=== PATIENT | female | born 1970 | race Caucasian/White ===

== ENCOUNTER 2016-11-02 13:45 | Emergency (ER) | payer OTHER ==
[~2016-11-02] VITALS: Ht 157.5 cm; Wt 86.2 kg
[~2016-11-02 13:45] MED LIST: AUGMENTIN 875875 MG PO; CIPRO 500MG (E500 MG PO; CIPRO500 MG PO; DOCUSATE SODIU100 MG PO; FLAG500 PO; FLAGYL250 MG PO; KETOROLAC TROME10 M1 PO; NEXIUM20 M1 PO; OMEPRAZOLE40 MG PO; PERCOCET 325 MG1 TA2 PO; PROTONIX 40MG T40 MG PO; SERTRALINE HYDR50 MG PO; SINGULAIR10 MG PO; TYLENOL TAB 32325 MG PO; ZOFRAN ODT4 MG PO; ZOFRAN4 M2 PO
[2016-11-02 14:42] LABS: ABSOLUTE BASOPHIL COUNT 0 /CUMM (0.0-0.2); ABSOLUTE EOSINOPHIL COUNT 0.1 /CUMM (0.0-0.7); ABSOLUTE MONOCYTE COUNT 0.4 /CUMM (0.10-0.60)
[2016-11-02 14:49] LABS: ABSOLUTE GRANULOCYTE CT 3.7 /CUMM (1.4-6.5); ABSOLUTE LYMPH COUNT 1.8 /CUMM (1.2-3.4); BASOPHIL % 0.7 % (0.0-2.0); EOSINOPHIL % 1.4 % (0-5); GRANULOCYTE % 61.4 % (42.2-75.2); HEMATOCRIT 34.6 % (37-47); MEAN CORPUSCULAR HGB 26.2 PG (27.0-31.0); MEAN CORPUSCULAR HGB CONC 33.7 G/DL (33.0-37.0); MEAN CORPUSCULAR VOLUME 77.7 FL (81.0-99.0); MEAN PLATELET VOLUME 7.6 FL (7.4-10.4); PLATELET COUNT 300 /CUMM (130-400); RBC DISTRIBUTION WIDTH 14.8 % (11.5-14.5); RED BLOOD CELL CT 4.45 /CUMM (4.20-5.40)
--- NOTE | 2016-11-02 15:11 | ED GI/GU/ABDOMINAL COMPLAINT ---
History of Present Illness General Chief Complaint: Abdominal Pain/Flank Pain Stated Complaint: ABD/BACK PAIN Source: patient, old records Exam Limitations: no limitations Vital Signs & Intake/Output Vital Signs & Intake/Output Vital Signs Date Time Temp Pulse Resp B/P Pulse O2 O2 Flow FiO2 Ox Delivery Rate 11/02 1348 98.0 69 20 135/87 98 Room Air Allergies Coded Allergies: erythromycin base (From ERYTHROCIN) (BAD ACNE 11/02/15) oxaprozin (HEART PALPITATIONS 11/02/15) Reconcile Medications Esomeprazole Magnesium (Nexium) 20 MG CAPSULE.DR 1 CAP PO DAILY GI (Reported) Montelukast Sodium (Singulair) 10 MG TAB 1 TAB PO DAILY ALLERGIES (Reported) SERTRALINE HCL (Sertraline Hydrochloride) 50 MG TABLET 75 MG PO DAILY DEPRESSION (Reported) Triage Note: PT C/O ABDOMINAL AND LOWER BACK PAIN. +NAUSEA. PT STATES IT FEELS LIKE HER DIVERTICULITIS IS BACK Triage Nurses Notes Reviewed? yes LMP (ages 10-50): unknown ? n Is pt currently ? No Onset: 2 days Duration: day(s):, constant, continues in ED, getting worse Timing: recent history Quality/Severity: aching, stabbing Location: left lower quadrant Radiation: back Activities at Onset: none Prior Abdominal Problems: similar symptoms Past Sexual History: Unobtainable at this time Modifying Factors: Worsens With: movement, palpation. Associated Symptoms: abdominal pain HPI: 2 days prior to admission patient complains of left lower quadrant pain sharp progressive radiating to her back worse with movement palpation. She denies fever chills nausea vomiting diarrhea chest pain cough shortness of breath headache dysuria rash bleeding. It is similar to previous diverticulitis pain. (SÁNCHEZ THAO,LIZETH) Past History Travel History Traveled to [place] past 21 day No Medical History Any Pertinent Medical History? 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 No (LIZETH POZO MD) Review of Systems Review of Systems Constitutional: Reports: no symptoms. EENTM: Reports: no symptoms. Respiratory: Reports: no symptoms. Cardiovascular: Reports: no symptoms. GI: Reports: see HPI, abdominal pain. Genitourinary: Reports: no symptoms. Musculoskeletal: Reports: no symptoms. Skin: Reports: no symptoms. Neurological/Psychological: Reports: no symptoms. Hematologic/Endocrine: Reports: no symptoms. Immunologic/Allergic: Reports: no symptoms. All Other Systems: Reviewed and Negative (LIZETH POZO MD) Physical Exam Physical Exam General Appearance: well developed/nourished, alert, awake, anxious, mild distress, obese Head: atraumatic, normal appearance Eyes: Bilateral: normal appearance, PERRL, EOMI, normal inspection. Ears, Nose, Throat, Mouth: hearing grossly normal, moist mucous membrane Neck: normal inspection, supple, full range of motion, normal alignment Respiratory: normal breath sounds, chest non-tender, no respiratory distress, quiet respiration, lungs clear Cardiovascular: regular rate/rhythm, normal peripheral pulses, norml femoral pulses equa Peripheral Pulses: 4+ carotid (R), 4+ carotid (L) Gastrointestinal: normal bowel sounds, soft, guarding, rebound, tenderness (LLQ) Back: normal inspection, normal range of motion Extremities: normal range of motion, no ligament instability Neurologic/Psych: no motor/sensory deficits, awake, alert, oriented x 3, normal gait, normal mood/affect, brass pickler II-XII nml as tested Skin: intact, normal color, warm/dry Core Measures ACS in differential dx? No Severe Sepsis Present: No Septic Shock Present: No (LIZETH POZO MD) Progress Differential Diagnosis: diverticulitis, kidney stone, UTI/pyelo Plan of Care: Orders Procedure Date/time Status URINE 11/02 1423 Complete URINALYSIS 11/02 1423 Complete LIPASE 11/02 1423 Complete COMPREHENSIVE METABOLIC PANEL 11/02 1423 Complete CBC WITHOUT DIFFERENTIAL 11/02 1423 Complete Current Medications Sig/Adriana Start time Last Medication Dose Stop Time Status Admin Ciprofloxacin 500 MG ONCE ONE 11/02 1630 AC (Cipro) 11/02 1631 Metronidazole 500 MG ONCE ONE 11/02 1630 AC (Flagyl) 11/02 1631 Laboratory Tests 11/02/16 1433: Urine Color YEL, Urine Clarity CLEAR, Urine pH 6.0, Ur Specific [place] >= 1.030 , Urine Protein NEG, Urine Ketones NEG, Urine Nitrite NEG, Urine Bilirubin NEG, Urine Urobilinogen 0.2, Ur Leukocyte Esterase SMALL H, Ur Microscopic SEDIMENT EXAMINED, Urine RBC RARE, Urine WBC RARE, Ur Epithelial Cells MOD H, Urine Bacteria MOD H, Hyaline Casts RARE H, Urine Mucus FEW, Urine Hemoglobin TRACE- INTACT, Urine Glucose NEG, Urine Test NEGATIVE 11/02/16 1430: Anion Gap 11, Estimated GFR > 60, BUN/Creatinine Ratio 23.3, Glucose 84, Calcium 9.4, Total Bilirubin 0.4, AST 17, ALT 30, Alkaline Phosphatase 87, Total Protein 7.5, Albumin 4.3, Globulin 3.2, Albumin/Globulin Ratio 1.3, Lipase 87, CBC w Diff NO MAN DIFF REQ, RBC 4.45, MCV 77.7 L, MCH 26.2 L, RDW 14.8 H, MPV 7.6, Gran % 61.4, Lymphocytes % 30.3, Monocytes % 6.2, Eosinophils % 1.4, Basophils % 0.7, Absolute Granulocytes 3.7, Absolute Lymphocytes 1.8, Absolute Monocytes 0.4 , Absolute Eosinophils 0.1, Absolute Basophils 0, PUBS MCHC 33.7 Initial ED EKG: none Hand-Off Endorsed To: FRANCISCO MARY MD Endorsed Time: 1500 Pending: labs, other (SÁNCHEZ THAO,LIZETH) Comments: 11/02/2016 3:59:13 PM patient 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 11/02/2016 4:23:11 PM Alice is starting to feel better with only minimal pain at this point. Her abdominal examination shows mild left lower quadrant abdominal tenderness with brief voluntary guarding but no rebound. She states that this is a typical episode of diverticulitis for her (based on symptoms) and feels comfortable with omitting the CAT scan at this point. (FRANCISCO MARY MD) Departure Departure Disposition: STILL A PATIENT Condition: Stable Referrals: ROBER HINOJOSA APRN (PCP/Family) Departure Forms: Customer Survey General Discharge Information (LIZETH POZO MD) Departure Clinical Impression Primary Impression: Abdominal pain Qualifiers: Abdominal location: left lower quadrant Qualified Code: R10.32 - Left lower quadrant pain Secondary Impressions: Diverticulitis Qualifiers: Diverticulitis bleeding: without bleeding Additional Instructions: Cipro and Flagyl as prescribed. Toradol as needed for pain. Follow-up with your primary care physician in 48 hours for reevaluation. Return if any concerns or sudden worsening. Thank you for choosing the [facility] Emergency Department for your care. It was a pleasure to serve you today. Francisco Mary M.D. [facility] Prescriptions: Current Visit Scripts Ciprofloxacin HCl (Cipro) 1 TAB PO BID #14 TAB Metronidazole (Flagyl) 1 TAB PO Q6 #28 TAB Ketorolac Tromethamine 1 TAB PO Q6P PRN pain #16 TAB (CARMEL THAO,FRANCISCO Duarte)
[2016-11-02] MEDS ORDERED: KETOROLAC TROME10 M1 PO (16:27)
[2016-11-02] MEDS ORDERED: FLAGYL500 MG PO (16:27)
[2016-11-02] MEDS ORDERED: CIPRO500 M1 PO (16:27)
[2016-11-02 16:36] VITALS: BP 139/86
== END 2016-11-02 17:29 ==
LOC: ERH 13:45
PROVIDERS: Emergency Medicine
DX: K57.92 Diverticulitis of intestine, part unspecified, without perforation or abscess without bleeding (principal)
CPT/HCPCS: 81001; 81025; 96361; 96374; J1885

== ENCOUNTER 2017-11-19 12:54 | Emergency (ER) | payer OTHER ==
[~2017-11-19] VITALS: Ht 157.5 cm; Wt 86.2 kg
[~2017-11-19 12:54] MED LIST changes: +BACTRIM DS TAB1 EACH PO; +CIPRO500 M1 PO; +FLAGYL500 MG PO; +PRILOSEC OTC20 M1 PO; +SERTRALINE HCL50 MG PO; -SERTRALINE HYDR50 MG PO; +SINGULAIR10 M1 PO; -SINGULAIR10 MG PO
--- NOTE | 2017-11-19 13:10 | ED CARDIAC/CP/PALPITATIONS ---
History of Present Illness General Chief Complaint: Chest Pain Stated Complaint: BIBA CHEST PAIN Source: patient, family Exam Limitations: no limitations Vital Signs & Intake/Output Vital Signs & Intake/Output Vital Signs Date Time Temp Pulse Resp B/P B/P Pulse O2 O2 Flow FiO2 Mean Ox Delivery Rate 11/19 1651 58 14 119/79 97 Room Air 11/19 1536 98.4 69 18 120/68 96 Room Air 11/19 1330 75 142/72 11/19 1256 98.2 68 18 140/89 96 Room Air Room Air Allergies Coded Allergies: erythromycin base (From ERYTHROCIN) (BAD ACNE 11/02/15) oxaprozin (HEART PALPITATIONS 11/02/15) Reconcile Medications Montelukast Sodium (Singulair) 10 MG TABLET 1 TAB PO DAILY ALLERGIES ( Reported) Omeprazole Magnesium (Prilosec Otc) 20 MG TABLET.DR 1 TAB PO DAILY GI ( Reported) Sertraline HCl 50 MG TABLET 75 MG PO DAILY MENTAL HEALTH (Reported) Triage Note: TRIAGE: 47 Y/O FEMALE PRESENTS C/O 5/10 SUBSTERNAL/ LEFT SIDED CHEST PAIN X1 HOUR WHILE AT [facility]. RECEIVED EITHER 3 OR 4 ASA PRIOR TO ARRIVAL. RECEIVED 0.4MG SUBMIGUAL NITRO EV ROUTE. 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 Triage Nurses Notes Reviewed? yes Onset: Abrupt Duration: hour(s): Timing: single episode today Quality/Severity: moderate Location: substernal Radiation: no radiation Activities at Onset: none Prior Chest Pain/Card Workup: no prior chest pain Nitro Today/Relief: 0.4 mg x 1 Aspirin Today: 81 mg x 3 LMP (ages 10-50): TUBAL LIGATION : No HPI: 47yo female with hx of diverticulitis, depresssion BIBA complaining of left- sided substernal chest pain beginning at 1145 today. Patient states that she was sitting in yarsani when chest pain began. Pain is described as constant, 5/ 10, without radiation, pleuritic. Patient has no history of prior chest pain. Patient does report a history of bradycardia and tachycardia during childbirth however did not require cardiology follow-up at that time. Patient also reports associated nausea which is improved following IV Zofran. Patient reports associated dyspnea. Patient was given 81 mg aspirin 3 and sublingual nitroglycerin 0.41. Patient reports no relief or change in her chest pain following nitroglycerin dose. Patient reports dry cough intermittently. Patient denies abdominal pain, fevers, chills, hemoptysis, recent travel, leg swelling, exogenous estrogen use, history of PE. (Ирина Hinojosa) Past History Travel History Traveled to [place] past 21 day No Medical History Any Pertinent Medical History? 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 No (Ирина Hinojosa) Review of Systems Review of Systems Constitutional: Reports: no symptoms. EENTM: Reports: no symptoms. Respiratory: Reports: see HPI. Cardiovascular: Reports: see HPI. GI: Reports: see HPI. Genitourinary: Reports: no symptoms. Musculoskeletal: Reports: no symptoms. Skin: Reports: no symptoms. Neurological/Psychological: Reports: no symptoms. Hematologic/Endocrine: Reports: no symptoms. Immunologic/Allergic: Reports: no symptoms. All Other Systems: Reviewed and Negative (Ирина Hinojosa) Physical Exam Physical Exam General Appearance: well developed/nourished, no apparent distress, alert, awake Head: atraumatic, normal appearance Eyes: Bilateral: normal appearance. Ears, Nose, Throat: hearing grossly normal Neck: normal inspection, supple, full range of motion Respiratory: no respiratory distress, slightly diminished breath sounds bilaterally Cardiovascular: regular rate/rhythm, normal peripheral pulses Peripheral Pulses: 2+ radial (R), 2+ radial (L) Gastrointestinal: normal bowel sounds, soft, non-tender, no organomegaly Back: normal inspection, normal range of motion Extremities: normal inspection, normal range of motion, no edema Neurologic/Psych: awake, alert, oriented x 3 Skin: intact, normal color, warm/dry Core Measures ACS in differential dx? Yes CVA/TIA Diagnosis No Sepsis Present: No Sepsis Focused Exam Completed? No (Ирина Hinojosa) Progress Differential Diagnosis: AMI, atrial fibrillation, CHF/pulm edema, costochondritis, hyperventilation, musculoskeletal pain, myocarditis, pericarditis, pneumonia, pneumothorax, PSVT, pulmonary embolism, unstable angina Plan of Care: Orders Procedure Date/time Status TROPONIN LEVEL 11/19 1630 Complete EKG 11/19 1630 Active Add-on Test (ER Only) 11/19 1441 Active D-DIMER 11/19 1325 Complete URINE 11/19 1309 Complete URINE DRUG SCREEN FOR ER ONLY 11/19 1309 Complete URINALYSIS 11/19 1309 Complete TROPONIN LEVEL 11/19 1309 Complete COMPREHENSIVE METABOLIC PANEL 11/19 1309 Complete CBC WITHOUT DIFFERENTIAL 11/19 1309 Complete EKG 11/19 1300 Active Laboratory Tests 11/19/17 1642: Troponin I < 0.01, Urine Opiates Screen 2303.00 H, Methadone Screen < 40, Barbiturate Screen < 60, Ur Phencyclidine Scrn < 6.00, Amphetamines Screen < 100 , U Benzodiazepines Scrn 114, Urine Cocaine Screen < 50, Urine Cannabis Screen < 5.00, Urine Color YEL, Urine Clarity CLEAR, Urine pH 6.0, Ur Specific [place] 1.025, Urine Protein NEG, Urine Ketones NEG, Urine Nitrite NEG, Urine Bilirubin NEG, Urine Urobilinogen 0.2, Ur Leukocyte Esterase NEG, Ur Microscopic SEDIMENT EXAMINED, Urine RBC 1-3, Urine WBC RARE, Ur Epithelial Cells FEW, Urine Bacteria RARE H, Urine Mucus RARE, Urine Hemoglobin TRACE-LYSED, Urine Glucose NEG, Urine Test NEGATIVE 11/19/17 1330: Anion Gap 11, Estimated GFR > 60, BUN/Creatinine Ratio 18.3, Glucose 99, Calcium 9.5, Total Bilirubin 0.4, AST 20, ALT 22, Alkaline Phosphatase 87, Troponin I < 0.01, Total Protein 7.1, Albumin 4.1, Globulin 3.0, Albumin/Globulin Ratio 1.4, D-Dimer High Sensitivty 212, CBC w Diff NO MAN DIFF REQ, RBC 4.34, MCV 78.3 L, MCH 25.9 L, MCHC 33.1, RDW 14.4, MPV 7.5, Gran % 65.6, Lymphocytes % 25.6, Monocytes % 7.4, Eosinophils % 0.9, Basophils % 0.5, Absolute Granulocytes 4.2, Absolute Lymphocytes 1.6, Absolute Monocytes 0.5, Absolute Eosinophils 0.1, Absolute Basophils 0 Patient reports no relief following second sublingual nitroglycerin tablet. Patient medicated with IV morphine. Patient states her chest pain has improved following morphine. Chest x-ray is within normal limits. Initial EKG in sinus rhythm. Troponin enzyme is negative. D-dimer is negative, low suspicion for pulmonary embolism at this time. Dr. Acevedo present in the emergency department, he saw patient's initial EKG. He states that her current symptoms are likely not cardiac in nature however recommends repeat EKG and troponin. Repeat EKG is unchanged from previous study. Second troponin enzyme negative. I discussed these findings with Dr. Acevedo, he agrees with plan for outpatient follow-up in the office. Patient was given strict return precautions. The patient is in no acute distress, nontoxic appearing, vital signs are stable. She states that her prior chest pain has resolved. Patient understands and agrees with the plan of care. Diagnostic Imaging: Viewed by Me: Radiology Read. Discussed w/RAD: Radiology Read. CXR Impression: PATIENT: BRADEN RODRÍGUEZ PRESENT AGE: 47 PATIENT ACCOUNT NO: [id number] : 71 LOCATION: [facility] ORDERING PHYSICIAN: Ирина LIM SERVICE DATE: 11/19/17 EXAM TYPE: RAD - XRY-CHEST XRAY, TWO VIEWS EXAMINATION: XR CHEST CLINICAL INFORMATION: Chest pain. COMPARISON: 01/13/2011 TECHNIQUE: 2 views of the chest were obtained. FINDINGS: Large body habitus. Lungs are hypoinflated but clear. No focal interstitial infiltrate, consolidation or pleural effusion. Cardiac silhouette is normal in size. The mediastinal and hilar contours are normal. The visualized bones are intact. IMPRESSION: No acute cardiopulmonary findings. DICTATED BY: Jenaro Amado MD DATE/TIME DICTATED:11/19/171440 PHARMACY TEACHER:AILIN DATE/TIME TRANSCRIBED:11/19/171440 CONFIDENTIAL, DO NOT COPY WITHOUT APPROPRIATE AUTHORIZATION. <Electronically signed in Other Vendor System> SIGNED BY: Jenaro Amado MD 11/19/17 6818 Initial ED EKG: sinus rhythm @62bpm, LVH Prior EKG: unchanged (10/08/05) Repeat EKG: unchanged (MacyИрина Rivera) Departure Departure Disposition: HOME OR SELF CARE Condition: Stable Clinical Impression Primary Impression: Chest pain Referrals: Melissa Ryan APRN (PCP/Family) Emerita Acevedo MD Additional Instructions: Take Aleve 400mg twice daily for inflammation. Follow-up with the truck supervisor, Dr. Acevedo, call the office tomorrow morning to set up appointment for this week. With any worsening symptoms such as increasing chest pain, shortness of breath, feeling is that you're going to pass out, fainting please return immediately to the emergency department. Please note that there might be incidental findings in your evaluation that are unrelated to the current emergency department visit. Please notify your primary care doctor about this emergency department visit in order to obtain and review all of the testing performed so that these incidental findings can be monitored as needed. If you had an x-ray performed, please understand that some fractures may not be seen on the initial set of x-rays. If your symptoms persist you might need a repeat set of x-rays to check for such a fracture. If you had a laceration evaluated, please understand that foreign bodies such as glass or wood may not be visible to the naked eye or on plain x-rays. If the wound becomes red, swollen, increasingly more painful or if there is any drainage from the wound, please have it reevaluated by a physician for the possibility of a retained foreign body. If you're unable to follow up as outlined in the discharge instructions please return to the emergency department. Thank you for choosing the [facility] Emergency Department for your care. It was a pleasure to serve you today. Departure Forms: Customer Survey General Discharge Information (Ирина Hinojosa) PA/INDOOR LANDSCAPER/GARDENER Co-Sign Statement Statement: ED Attending supervision documentation- X I saw and evaluated the patient. I have also reviewed all the pertinent lab results and diagnostic results. I agree with the findings and the plan of care as documented in the PA's/INDOOR LANDSCAPER/GARDENER's documentation. [] I have reviewed the ED Record and agree with the PA's/INDOOR LANDSCAPER/GARDENER's documentation. [] Additions or exceptions (if any) to the PAs/INDOOR LANDSCAPER/GARDENER's note and plan are summarized below: [] (Jacinto THAO,Romel) Critical Care Note Critical Care Note Critical Care Time: non-applicable (Ирина Hinojosa)
[2017-11-19 14:22] LABS: ABSOLUTE BASOPHIL COUNT 0 /CUMM (0.0-0.2); ABSOLUTE EOSINOPHIL COUNT 0.1 /CUMM (0.0-0.7); ABSOLUTE GRANULOCYTE CT 4.2 /CUMM (1.4-6.5); ABSOLUTE LYMPH COUNT 1.6 /CUMM (1.2-3.4); ABSOLUTE MONOCYTE COUNT 0.5 /CUMM (0.10-0.60); BASOPHIL % 0.5 % (0.0-2.0); EOSINOPHIL % 0.9 % (0-5); GRANULOCYTE % 65.6 % (42.2-75.2); MEAN CORPUSCULAR HGB 25.9 PG (27.0-31.0); MEAN CORPUSCULAR HGB CONC 33.1 G/DL (33.0-37.0); MEAN CORPUSCULAR VOLUME 78.3 FL (81.0-99.0); MEAN PLATELET VOLUME 7.5 FL (7.4-10.4); PLATELET COUNT 294 /CUMM (130-400); RBC DISTRIBUTION WIDTH 14.4 % (11.5-14.5); RED BLOOD CELL CT 4.34 /CUMM (4.20-5.40); WHITE BLOOD CELL COUNT 6.3 /CUMM (4.8-10.8)
--- NOTE | 2017-11-19 14:47 | RADIOLOGY REPORT ---
EXAMINATION: XR CHEST CLINICAL INFORMATION: Chest pain. COMPARISON: 01/13/2011 TECHNIQUE: 2 views of the chest were obtained. FINDINGS: Large body habitus. Lungs are hypoinflated but clear. No focal interstitial infiltrate, consolidation or pleural effusion. Cardiac silhouette is normal in size. The mediastinal and hilar contours are normal. The visualized bones are intact. IMPRESSION: No acute cardiopulmonary findings.
[2017-11-19 16:51] VITALS: BP 119/79
== END 2017-11-19 18:41 ==
LOC: ERH 12:54
PROVIDERS: Physician Assistant
DX: R07.89 Other chest pain (principal)
CPT/HCPCS: 71046; 80307; 81001; 81025; 93005; 93010; 96374

== ENCOUNTER 2017-11-22 19:13 | Emergency (ER) | payer OTHER ==
[2017-11-22 19:39] LABS: ABSOLUTE BASOPHIL COUNT 0 /CUMM (0.0-0.2); ABSOLUTE EOSINOPHIL COUNT 0.1 /CUMM (0.0-0.7); ABSOLUTE LYMPH COUNT 1.9 /CUMM (1.2-3.4); ABSOLUTE MONOCYTE COUNT 0.6 /CUMM (0.10-0.60); BASOPHIL % 0.5 % (0.0-2.0); EOSINOPHIL % 1.1 % (0-5); GRANULOCYTE % 65.2 % (42.2-75.2); HEMATOCRIT 34.7 % (37-47); MEAN CORPUSCULAR HGB 25.4 PG (27.0-31.0); MEAN CORPUSCULAR HGB CONC 32.8 G/DL (33.0-37.0); MEAN CORPUSCULAR VOLUME 77.6 FL (81.0-99.0); PLATELET COUNT 318 /CUMM (130-400); RBC DISTRIBUTION WIDTH 14.6 % (11.5-14.5); RED BLOOD CELL CT 4.48 /CUMM (4.20-5.40); WHITE BLOOD CELL COUNT 7.7 /CUMM (4.8-10.8)
--- NOTE | 2017-11-22 20:08 | RADIOLOGY REPORT ---
EXAMINATION: XR CHEST CLINICAL INFORMATION: Chest pain, shortness of breath COMPARISON: 11/19/2017 TECHNIQUE: 2 views of the chest were obtained. FINDINGS: Lung volumes are slightly diminished. No focal consolidation or mass. No pleural effusion or pneumothorax. Cardiomediastinal silhouette within normal limits. S-shaped thoracolumbar scoliosis. IMPRESSION: No acute pulmonary disease.
--- NOTE | 2017-11-22 20:59 | ED CARDIAC/CP/PALPITATIONS ---
History of Present Illness General Chief Complaint: Chest Pain Stated Complaint: CHEST PAIN Source: patient, old records Exam Limitations: no limitations Vital Signs & Intake/Output Vital Signs & Intake/Output Vital Signs Date Time Temp Pulse Resp B/P B/P Pulse O2 O2 Flow FiO2 Mean Ox Delivery Rate 11/22 2334 98.1 66 18 149/71 98 Room Air 11/22 2230 97.6 71 16 128/76 98 Room Air 11/22 2010 68 16 123/65 98 Room Air 11/22 2009 Room Air 11/22 1922 96.3 76 18 141/90 98 Room Air Allergies Coded Allergies: erythromycin base (From ERYTHROCIN) (BAD ACNE 11/02/15) oxaprozin (HEART PALPITATIONS 11/02/15) Reconcile Medications Montelukast Sodium (Singulair) 10 MG TABLET 1 TAB PO DAILY ALLERGIES ( Reported) Omeprazole Magnesium (Prilosec Otc) 20 MG TABLET.DR 1 TAB PO DAILY GI ( Reported) Sertraline HCl 50 MG TABLET 75 MG PO DAILY MENTAL HEALTH (Reported) Triage Note: PT TO TRIAGE C/O MID SUBSTERNAL CP CONSISTANT IN NATURE X1 DAY THAT BEGAN AT REST. PER PT WAS SEEN HERE OVER THE WEEKEND STATES "THEY DIDN'T FIND ANYTHING BUT SAID TO COME BACK IF I HAD PAIN AGAIN." PT DENIES SOB/DIZZINESS/N/V/RADIATING PAIN. Triage Nurses Notes Reviewed? yes Onset: Gradual Duration: week(s): (1), constant, continues in ED, getting worse Timing: recent history Quality/Severity: moderate, "pOINTING". Location: central Radiation: no radiation Activities at Onset: none, rest Prior Chest Pain/Card Workup: no prior chest pain, no prior cardiac workup Modifying Factors: Worsens With: palpation. Nitro Today/Relief: no nitro taken today Aspirin Today: no aspirin today LMP (ages 10-50): unknown : No Patient currently breastfeeds: No HPI: 47 Y/O female past medical history of depression, mood swings, diverticulitis present for evaluation of chest pain. Patient states that symptoms have been present for the past week and have been persistent. States that initially the pain started off as pressure. She was seen in the emergency department several days ago had a cardiac workup including 2 sets of EKGs and troponins negative d- dimer negative chest x-ray. She was referred to cardiology and discharged. Patient states that since then the pain has worsened and unchanged. The pain has now become "a pointing sensation". This is located in the center of her chest. It is worse with palpation of the area as well as movement of the upper extremities and thorax. There is no trauma no shortness of breath. No nausea vomiting sweats or chills. She does report a cardiac history and her uncle and grandfather. She does not drink smoke or use any drugs. There is no chest pain or shortness of breath worsening on exertion. She's not taking any medicine for this. (Kaiden Stallworth) Past History Travel History Traveled to [place] past 21 day No Medical History Any Pertinent Medical History? see below for history Neurological: NONE EENT: NONE Cardiovascular: NONE Respiratory: SEASONAL ALLERGIES chronic cough Gastrointestinal: diverticulitis Hepatic: NONE Renal: NONE Musculoskeletal: NONE Psychiatric: depression, mood swings Endocrine: NONE Blood Disorders: NONE Cancer(s): NONE SLAT PICKLER/Reproductive: NONE History of MRSA: No History of VRE: No History of CDIFF: No Surgical History Surgical History: non-contributory Psychosocial History Who do you live with Family Services at Home None What is your primary language Hungarian Tobacco Use: Never used Family History Hx Contributory? No (Kaiden Stallworth) Review of Systems Review of Systems Constitutional: Reports: no symptoms. EENTM: Reports: no symptoms. Respiratory: Reports: no symptoms. Cardiovascular: Reports: see HPI, chest pain. GI: Reports: no symptoms. Genitourinary: Reports: no symptoms. Musculoskeletal: Reports: no symptoms. Skin: Reports: no symptoms. Neurological/Psychological: Reports: no symptoms. Hematologic/Endocrine: Reports: no symptoms. Immunologic/Allergic: Reports: no symptoms. All Other Systems: Reviewed and Negative (Kaiden Stallworth) Physical Exam Physical Exam General Appearance: well developed/nourished, no apparent distress, alert, awake Head: atraumatic, normal appearance Eyes: Bilateral: normal appearance, PERRL, EOMI. Ears, Nose, Throat: normal pharynx, normal ENT inspection, hearing grossly normal Neck: normal inspection, supple, full range of motion Respiratory: normal breath sounds, no respiratory distress, lungs clear, CHEST WALL IS TENDER TO PALPATION OF THE STERNUM. nO BRUISING SWELLING OR ABRASIONS CHEST PAIN HISTORY. sO WITH RANGE OF MOTION OF THE THORAX AND BILATERAL UPPER EXTREMITIES Cardiovascular: regular rate/rhythm, normal peripheral pulses Peripheral Pulses: 2+ radial (R), 2+ radial (L) Gastrointestinal: soft, non-tender Back: normal inspection, normal range of motion, no vertebral tenderness Extremities: normal inspection, normal range of motion, no edema Neurologic/Psych: no motor/sensory deficits, awake, alert, oriented x 3, normal gait, normal mood/affect Skin: intact, normal color, warm/dry Lymphatic: no anterior cervical [place] Core Measures ACS in differential dx? No CVA/TIA Diagnosis No Sepsis Present: No Sepsis Focused Exam Completed? No (Kirk LIM,Kaiden) Progress Differential Diagnosis: AMI, aortic dissection, atrial fibrillation, CHF/pulm edema, costochondritis, musculoskeletal pain, pancreatitis, pericarditis, pneumonia, pneumothorax, PSVT, pulmonary embolism, PUD/GERD, PVCs/PACs, unstable angina Plan of Care: Orders Procedure Date/time Status TROPONIN LEVEL 11/22 2229 Complete EKG 11/22 2229 Active Add-on Test (ER Only) 11/23 1939 Active HUMAN BETA HCG SCREEN 11/23 1927 Complete EKG 11/23 1915 Active TROPONIN LEVEL 11/22 1913 Complete COMPREHENSIVE METABOLIC PANEL 11/22 1913 Complete CBC WITHOUT DIFFERENTIAL 11/22 1913 Complete Current Medications Sig/Adriana Start time Last Medication Dose Stop Time Status Admin Acetaminophen 650 MG ONCE ONE 11/220 CAN (Tylenol) 11/22 2331 Laboratory Tests 11/22/17 2223: Troponin I < 0.01 11/22/171927: Anion Gap 12, Estimated GFR > 60, BUN/Creatinine Ratio 20.0, Glucose 91, Calcium 9.1, Total Bilirubin 0.4, AST 17, ALT 25, Alkaline Phosphatase 83, Troponin I < 0.01, Total Protein 7.4, Albumin 4.2, Globulin 3.2, Albumin/Globulin Ratio 1.3, Total Beta HCG NEGATIVE, CBC w Diff NO MAN DIFF REQ, RBC 4.48, MCV 77.6 L, MCH 25.4 L, MCHC 32.8 L, RDW 14.6 H, MPV 7.0 L, Gran % 65.2, Lymphocytes % 25.3, Monocytes % 7.9, Eosinophils % 1.1, Basophils % 0.5, Absolute Granulocytes 5.0, Absolute Lymphocytes 1.9, Absolute Monocytes 0.6, Absolute Eosinophils 0.1, Absolute Basophils 0 Patient seen and evaluated. She's been having chest pain for greater than a week constantly. She does report that today the pain changed from pressure to "pointing sensation". No shortness of breath. She was seen here several days ago and had a negative workup. She was referred to cardiology but has not yet followed up. The pain is reproducible with range of motion and palpation. Her vital signs are stable. PERC negative. We'll recheck basic labs chest x-ray and EKG troponin. All blood work is within normal limits initial EKG troponin negative unchanged. Chest x-ray clear. Patient is medicated with ibuprofen and reports resolution of the pointing sensation and now just has persistent pressure again. We'll recheck another EKG and troponin. Repeat EKG troponin is not show any significant changes. Patient reports improvement after ibuprofen. Vital signs are stable. Reviewed all results of today's visit with patient advised her to follow-up with cardiology for further evaluation and treatment discussed return precautions case discussed with and he agrees. Dr. POZO personally saw and evaluated the patient. Diagnostic Imaging: Viewed by Me: Radiology Read. Discussed w/RAD: Radiology Read. Radiology Impression: PATIENT: BRADEN RODRÍGUEZ PRESENT AGE: 47 PATIENT ACCOUNT NO: [id number] : 71 LOCATION: [facility] ORDERING PHYSICIAN: Kaiden LIM SERVICE DATE: 11/22/17 EXAM TYPE: RAD - XRY- CHEST XRAY, TWO VIEWS EXAMINATION: XR CHEST CLINICAL INFORMATION: Chest pain, shortness of breath COMPARISON: 11/19/2017 TECHNIQUE: 2 views of the chest were obtained. FINDINGS: Lung volumes are slightly diminished. No focal consolidation or mass. No pleural effusion or pneumothorax. Cardiomediastinal silhouette within normal limits. S-shaped thoracolumbar scoliosis. IMPRESSION: No acute pulmonary disease. DICTATED BY: Marcelo Tyson MD DATE/TIME DICTATED:11/22/172003 NURSE ADVOCATE:AILIN DATE/TIME TRANSCRIBED:11/22/172003 CONFIDENTIAL, DO NOT COPY WITHOUT APPROPRIATE AUTHORIZATION. <Electronically signed in Other Vendor System> SIGNED BY: Marcelo Tyson MD 11/22/172007 Initial ED EKG: normal sinus rhythm, LVH, no ST T wave changes Prior EKG: unchanged Repeat EKG: unchanged (Kaiden Stallworth) Departure Departure Disposition: HOME OR SELF CARE Condition: Stable Clinical Impression Primary Impression: Chest wall pain Referrals: Melissa Ryan APRN (PCP/Family) Emerita Acevedo MD Additional Instructions: , Rest, avoid excessive physical activity. Tylenol and ibuprofen for pain. Make a follow-up appointment with Dr. Acevedo and your primary care doctor. Continue Tylenol and ibuprofen for pain. Monitor symptoms closely return with any concerns. Please go over all results of today's visit with your primary care doctor. Contact your primary care doctor to let them know you were here in the emergency room. There may be nonspecific findings which may not be related to your visit today here in the emergency room but may require further evaluation and chronic monitoring by your primary care doctor. If you had a laceration today the chance of foreign body always remains. You should follow-up with your primary care doctor for recheck in 3-5 days for a wound check. If you had an x-ray done there is a chance that a fracture could have been missed on initial read and you should follow-up with your primary care doctor for repeat x-rays if symptoms persist. If your blood pressure was elevated here in the emergency room please have rechecked by her primary care doctor within the next 48 hours by your primary care doctor. If you were prescribed a narcotic here in the emergency room or any type of controlled substances you're not allowed to drive while taking this medication or operate any type of heavy machinery. Narcotics can make you feel lightheaded dizziness nausea and can cause constipation. You may need to belt picker a stool softener. Thank you for choosing [facility] emergency room. Please return to the emergency room immediately if you have any other concerns worsening of symptoms. Departure Forms: Customer Survey General Discharge Information (Kaiden Stallworth) PA/CONCRETE PIPE PLANT SUPERVISOR Co-Sign Statement Statement: ED Attending supervision documentation- x I saw and evaluated the patient. I have also reviewed all the pertinent lab results and diagnostic results. I agree with the findings and the plan of care as documented in the PA's/CONCRETE P[employer]ANT SUPERVISOR's documentation. [] I have reviewed the ED Record and agree with the PA's/CONCRETE PIPE PLANT SUPERVISOR's documentation. [] Additions or exceptions (if any) to the PAs/CONCRETE PIPE PLANT SUPERVISOR's note and plan are summarized below: [] (Jacinto THAO,Romel) Critical Care Note Critical Care Note Critical Care Time: non-applicable (Kirk LIM,Kaiden)
[2017-11-22 23:34] VITALS: BP 149/71
== END 2017-11-22 23:40 ==
LOC: ERH 19:13
PROVIDERS: Physician Assistant Medical
DX: R07.89 Other chest pain (principal)
CPT/HCPCS: 71046; 93005; 93010